=== PATIENT | female | born 2000 | race American Indian/Alaskan Native ===

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

== ENCOUNTER 2022-03-30 12:30 | Emergency (ER) | payer MEDICAID, OTHER, SELFPAY ==
[2022-03-30 13:00] VITALS: BP 100/57; PULSE 112; RESP 22; TEMP 38.7; O2SAT 99; BMI 19.9
[2022-03-30 13:36] LABS: COVID19 -Nasal RAPID Negative (Negative)
--- NOTE | 2022-03-30 15:36 | ED.URI ---
HPI - URI/Sore Throat <Jeannie Shaikh PA-C - Last Filed: 03/30/22 19:26> General Chief Complaint: Upper Respiratory Symptoms Stated Complaint: injured back, fever 102.9F, chills, sweats Time Seen by Provider: 03/30/22 15:11 Source: patient Mode of arrival: Family Vehicle History of Present Illness HPI Narrative: The patient is very pleasant 21 years old female, who has been experiencing fever for past 4 days. She recalled it started with some fatigue, sore throat, low back pain. She does not report any injury. She denies nasal congestion. She has been taking ibuprofen with some relief. Till last dose of ibuprofen was last p.m.. Her persistent fever prompted her to visit the ED. she admits additionally, has been not eating and drinking enough. Reports some mild abdominal pain, radiating towards her back. She also has some nausea. She denies diarrhea, cough congestion, shortness of breath, she describes she feels quite weak and tired. Overall she describes herself as being healthy, freely gets sick was sinus, pulmonary or skin infections. She noted though that her brother 13 years old student has been sick with similar symptoms. Related Data Previous Rx's Medication Instructions Recorded ondansetron 4 mg disintegrating 4 mg PO Q6H PRN nausea and 07/15/19 tablet vomiting #14 tabs ciprofloxacin HCl 500 mg tablet 500 mg PO BID pyelonephri #28 tabs 03/30/22 (Cipro) Allergies Allergy/AdvReac Type Severity Reaction Status Date / Time Sulfa (Sulfonamide Allergy Severe Hives Verified 03/30/22 13:04 Antibiotics) Review of Systems <Jeannie Shaikh PA-C - Last Filed: 03/30/22 19:26> Review of Systems Narrative: GENERAL: admits to chills, fatigue, malaise, and fever, no sweats X 4 -5 days . HEENT: Denies sinus pain, ear pain, sore throat, difficulty swallowing, dizziness. RESPIRATORY: Denies dyspnea, cough, wheezing, hemoptysis, sputum. CARDIOVASCULAR: Denies chest pain, palpitations, orthopnea, edema, GASTROINTESTINAL: Denies nausea, vomiting, abdominal pain, diarrhea, constipation, melena. : Denies dysuria, frequency, incontinence, hematuria, urinary retention. MUSCULOSKELETAL: denies weakness, joint pain, or bony pain denies urinary frequency but noted her urine is dark, and somewhat malodorous SKIN: Denies rash, skin lesions, or other NEUROLOGIC: Denies weakness, headache, numbness, change in speech, confusion, seizures, incoordination. PSYCHIATRIC: No concerning psychosocial issues. Patient History <Jeannie Shaikh PA-C - Last Filed: 03/30/22 19:26> Medical History (Updated 03/30/22 @ 18:59 by Jeannie Shaikh PA-C) history Healthy child Surgical History No pertinent past surgical history Status post D&C Social History Smoking Status: Current every day smoker Smoking Status: Current every day smoker alcohol intake frequency: 0-2 drinks per day Substance Use Type: marijuana Exam <Jeannie Shaikh PA-C - Last Filed: 03/30/22 19:26> Narrative Exam Narrative: GENERAL: This is a well-nourished, well-developed patient, in no acute distress. HEAD: Atraumatic. Normocephalic. No temporal or scalp tenderness. EYES: Pupils equal round and reactive. Extraocular motions intact. No scleral icterus. No injection or drainage. ENT: Nose without bleeding, purulent drainage or septal hematoma. Throat without erythema, tonsillar hypertrophy or exudate. Uvula midline. Airway patent. NECK: Trachea midline. No JVD or lymphadenopathy. Supple, nontender, no meningeal signs. CARDIOVASCULAR: Regular rate and rhythm without murmurs, gallops, or rubs. RESPIRATORY: Clear to auscultation. Breath sounds equal bilaterally. No wheezes, rales, or rhonchi. GASTROINTESTINAL: Abdomen soft, non-tender, nondistended. No hepato-splenomegaly, or palpable masses. No guarding. EXTREMITIES: No clubbing, cyanosis, or edema. No joint tenderness, effusion, or edema noted. BACK: LS spine is slightly tender without deformity or crepitance. No flank tenderness. NEURO: AOx3. SKIN: No rash or erythema of visible areas Initial Vital Signs Initial Vital Signs: Vital Signs Temperature 101.6 F H 03/30/22 13:00 Pulse Rate 112 H 03/30/22 13:00 Respiratory Rate 22 03/30/22 13:00 Blood Pressure 100/57 L 03/30/22 13:00 Pulse Oximetry 99 03/30/22 13:00 Oxygen Delivery Method 03/30/22 13:00 <Renetta Calle DO - Last Filed: 04/01/22 08:00> Initial Vital Signs Initial Vital Signs: Vital Signs Temperature 101.6 F H 03/30/22 13:00 Pulse Rate 112 H 03/30/22 13:00 Respiratory Rate 22 03/30/22 13:00 Blood Pressure 100/57 L 03/30/22 13:00 Pulse Oximetry 99 03/30/22 13:00 Oxygen Delivery Method 03/30/22 13:00 Course <Jeannie Shaikh PA-C - Last Filed: 03/30/22 19:26> Course Course Narrative: the patient was observed in the emergency department for fever. Her physical exam overall was unremarkable apart from lumbar pain. Vital signs were positive for fever. Hemodynamicly patient was stable She underwent laboratory testing, CBC CMP, urinalysis, respiratory blood and urine cultures. CBC was positive for leukocytosis, neutrophilia. Urinalysis showed leukocytosis, nitrates consistant with UTI but presence of fever has been concerning for pyelonephritis. Orders Ordered: Discontinued Medications Ciprofloxacin (Ciprofloxacin 250 Mg Tablet) 500 mg PO NOW ONE Stop: 03/30/22 18:38 Last Admin: 03/30/22 19:01 Dose: 500 mg Documented By: MARILYN Famotidine (Famotidine 20 Mg/2 Ml Vial) 20 mg IV NOW [facility] Last Admin: 03/30/22 16:10 Dose: 20 mg Documented By: MARILYN Sodium Chloride (Normal Saline 0.9%) 1,000 mls @ 125 mls/hr IV CONT [facility] Last Infusion: 03/30/22 19:13 Dose: 125 mls/hr Documented By: Admin: 03/30/22 16:13 Dose: 125 mls/hr Documented By: MARILYN Ibuprofen (Ibuprofen 400 Mg Tablet) 400 mg PO NOW ONE Stop: 03/30/22 15:35 Last Admin: 03/30/22 16:11 Dose: 400 mg Documented By: MARILYN Ondansetron HCl (Ondansetron 4 Mg/2 Ml Inj) 4 mg IV NOW ONE Stop: 03/30/22 15:34 Last Admin: 03/30/22 16:09 Dose: 4 mg Documented By: MARILYN Reevaluation(s) Reevaluation #1: afte rNSAIDS fever went down to 99.7 F Vital Signs Vital signs: Vital Signs - 8 hr 03/30/22 13:00 03/30/22 16:51 03/30/22 19:04 Temperature 101.6 F H 99.7 F H Pulse Rate 112 H 96 H Respiratory Rate 22 18 24 Blood Pressure 100/57 L 106/59 L Pulse Oximetry 99 98 Oxygen Delivery Method Room Air Room Air 03/30/22 19:12 Temperature Pulse Rate 92 H Respiratory Rate 18 Blood Pressure 105/57 L Pulse Oximetry 99 Oxygen Delivery Method Room Air <Renetta Calle DO - Last Filed: 04/01/22 08:00> Orders Ordered: Discontinued Medications Ciprofloxacin (Ciprofloxacin 250 Mg Tablet) 500 mg PO NOW ONE Stop: 03/30/22 18:38 Last Admin: 03/30/22 19:01 Dose: 500 mg Documented By: MARILYN Famotidine (Famotidine 20 Mg/2 Ml Vial) 20 mg IV NOW [facility] Last Admin: 03/30/22 16:10 Dose: 20 mg Documented By: MARILYN Sodium Chloride (Normal Saline 0.9%) 1,000 mls @ 125 mls/hr IV CONT [facility] Last Infusion: 03/30/22 19:13 Dose: 125 mls/hr Documented By: Admin: 03/30/22 16:13 Dose: 125 mls/hr Documented By: MARILYN Ibuprofen (Ibuprofen 400 Mg Tablet) 400 mg PO NOW ONE Stop: 03/30/22 15:35 Last Admin: 03/30/22 16:11 Dose: 400 mg Documented By: MARILYN Ondansetron HCl (Ondansetron 4 Mg/2 Ml Inj) 4 mg IV NOW ONE Stop: 03/30/22 15:34 Last Admin: 03/30/22 16:09 Dose: 4 mg Documented By: MARILYN Vital Signs Vital signs: Vital Signs - 8 hr 03/30/22 13:00 03/30/22 16:51 03/30/22 19:04 Temperature 101.6 F H 99.7 F H Pulse Rate 112 H 96 H Respiratory Rate 22 18 24 Blood Pressure 100/57 L 106/59 L Pulse Oximetry 99 98 Oxygen Delivery Method Room Air Room Air 03/30/22 19:12 Temperature Pulse Rate 92 H Respiratory Rate 18 Blood Pressure 105/57 L Pulse Oximetry 99 Oxygen Delivery Method Room Air MDM - URI/Sore Throat <Jeannie Shaikh PA-C - Last Filed: 03/30/22 19:26> Differential Diagnosis Differential diagnosis: Likely other (pyelonephritis, UTI ) Lab Data Result diagrams: 03/30/22 13:30 03/30/22 13:30 Labs: Lab Results 03/30/22 03/30/22 03/30/22 Range/Units 10:38 12:51 13:30 WBC 16.8 H (4.5-11.0) X10^3/uL RBC 4.67 (4.0-5.2) X10^6/uL Hgb 13.9 (12.0-16.0) g/dL Hct 40.8 (36-46) % MCV 87.4 (80-100) fL MCH 29.7 (26-34) PG MCHC 34.0 (30-36) % RDW 14.2 (11.6-14.8) % Plt Count 252 (150-400) X10^3/uL Neut % (Auto) 86.9 H (50-75) % Lymph % (Auto) 4.0 L (25-40) % Stewart % (Auto) 8.9 (3-14) % Eos % (Auto) 0.1 L (2-4) % Baso % (Auto) 0.1 (0-2) % Neut # (Auto) 92583 H (3824-2288) /uL Lymph # (Auto) 700 L (8692-7644) /uL Stewart # (Auto) 1500 H (0-900) /uL Eos # (Auto) 0 (0-450) /uL Baso # (Auto) 0 (0-100) /uL Sodium (137-145) mmol/L Potassium (3.4-5.1) mmol/L Chloride (98-107) mmol/L Carbon Dioxide (22-32) mmol/L BUN (7-17) mg/dL Creatinine (0.52-1.04) mg/dL Estimated GFR (>60) mL/min BUN/Creatinine Ratio (6-22) Glucose (70-100) mg/dL Lactate Calcium (8.4-10.2) mg/dL Total Bilirubin (0.2-1.3) mg/dL AST (14-36) IU/L ALT (<35) IU/L Alkaline Phosphatase (38-126) U/L Total Protein (6.3-8.2) g/dL Albumin (3.5-5.0) g/dL Globulin (1.7-4.1) g/dL Albumin/Globulin Ratio (1.0-2.8) Urine RBC (0-5/HPF) Urine WBC (0-5/HPF) Ur Squamous Epith Cells (0-5/HPF) Urine Bacteria (None) Ur Culture Indicated? Chlamy pneumoniae PCR Not detected (Not Detect) Adenovirus (PCR) Not detected (Not Detect) B. pertussis DNA (PCR) Not detected (Not Detecte) B.parapertussis DNA PCR Not detected (Not Detecte) Coronavirus OC43 (PCR) Not detected (Not Detect) Coronavirus HKU1 (PCR) Not detected (Not Detect) Coronavirus 229E (PCR) Not detected (Not Detect) SARS-CoV-2 (PCR) Not detected Negative (Not Detecte) Coronavirus NL63 (PCR) Not detected (Not Detect) Human Metapneumovir PCR Not detected (Not Detect) Influenza Type A (PCR) Not detected (Not Detect) Influenza Type B (PCR) Not detected (Not Detect) M. pneumoniae (PCR) Not detected (Not Detect) Parainfluenza 1 (PCR) Not detected (Not Detect) Parainfluenza 2 (PCR) Not detected (Not Detect) Parainfluenza 3 (PCR) Not detected (Not Detect) Parainfluenza 4 (PCR) Not detected (Not Detect) RSV (PCR) Not detected (Not Detect) Entero/Rhino (PCR) Not detected (Not Detect) 03/30/22 03/30/22 03/30/22 Range/Units 13:30 13:30 16:30 WBC (4.5-11.0) X10^3/uL RBC (4.0-5.2) X10^6/uL Hgb (12.0-16.0) g/dL Hct (36-46) % MCV (80-100) fL MCH (26-34) PG MCHC (30-36) % RDW (11.6-14.8) % Plt Count (150-400) X10^3/uL Neut % (Auto) (50-75) % Lymph % (Auto) (25-40) % Stewart % (Auto) (3-14) % Eos % (Auto) (2-4) % Baso % (Auto) (0-2) % Neut # (Auto) (8719-3007) /uL Lymph # (Auto) (8286-4868) /uL Stewart # (Auto) (0-900) /uL Eos # (Auto) (0-450) /uL Baso # (Auto) (0-100) /uL Sodium 138 (137-145) mmol/L Potassium 4.0 (3.4-5.1) mmol/L Chloride 103 (98-107) mmol/L Carbon Dioxide 22 (22-32) mmol/L BUN 9 (7-17) mg/dL Creatinine 0.73 (0.52-1.04) mg/dL Estimated GFR > 60 (>60) mL/min BUN/Creatinine Ratio 12.3 (6-22) Glucose 112 H (70-100) mg/dL Lactate Cancelled Calcium 8.8 (8.4-10.2) mg/dL Total Bilirubin 0.8 (0.2-1.3) mg/dL AST 24 (14-36) IU/L ALT 12 (<35) IU/L Alkaline Phosphatase 87 (38-126) U/L Total Protein 8.2 (6.3-8.2) g/dL Albumin 4.2 (3.5-5.0) g/dL Globulin 4.0 (1.7-4.1) g/dL Albumin/Globulin Ratio 1.1 (1.0-2.8) Urine RBC 0-1/hpf D (0-5/HPF) Urine WBC 10-30/hpf H (0-5/HPF) Ur Squamous Epith Cells F (0-5/HPF) Urine Bacteria Many (>30) H (None) Ur Culture Indicated? Specimen cultured Chlamy pneumoniae PCR (Not Detect) Adenovirus (PCR) (Not Detect) B. pertussis DNA (PCR) (Not Detecte) B.parapertussis DNA PCR (Not Detecte) Coronavirus OC43 (PCR) (Not Detect) Coronavirus HKU1 (PCR) (Not Detect) Coronavirus 229E (PCR) (Not Detect) SARS-CoV-2 (PCR) (Not Detecte) Coronavirus NL63 (PCR) (Not Detect) Human Metapneumovir PCR (Not Detect) Influenza Type A (PCR) (Not Detect) Influenza Type B (PCR) (Not Detect) M. pneumoniae (PCR) (Not Detect) Parainfluenza 1 (PCR) (Not Detect) Parainfluenza 2 (PCR) (Not Detect) Parainfluenza 3 (PCR) (Not Detect) Parainfluenza 4 (PCR) (Not Detect) RSV (PCR) (Not Detect) Entero/Rhino (PCR) (Not Detect) Point of Care Testing Test Results Negative Urine Dip Bedside Urine Glucose Negative Bedside Urine Bilirubin - Negative Bedside Urine Ketone + 15 Urine Specific [place] 1.010 Bedside Urine Occult Blood +/- Bedside Urine pH 7.0 Bedside Urine Protein + 30 Bedside Urine Urobilinogen 1+ 2mg Bedside Urine Nitrite + Positive Bedside Urine Leukocytes + 70 Esterase Imaging Data Chest x-ray: Radiologist's Impression: IMPRESSION:? Blunting of the left costophrenic angle which may represent pleural thickening or small pleural effusion. Otherwise, no acute airspace disease.? ? ECG Data Interpretation: NSR MDM Narrative Medical decision making narrative: pt is 21 years old female without significant medical history who was observed in the emergency department for fever, low back pain, nausea dehydration. Initially inpatient presented with some sore throat, which upside. Fever persisted, and subsequent workup including CBC, urinalysis, and examination consistent with urinary tract infection, and perhaps pyelonephritis. Patient's fever responded to NSAIDs. She remained hemodynamically stable she received IV fluid , antiemetics, NSAIDS, first dose atibiotics and much improved. She felt to be stable to be discharge home with istructions to continue antibiotisc, follow with PCP, <Renetta Calle, - Last Filed: 04/01/22 08:00> Lab Data Labs: Lab Results 03/30/22 03/30/22 03/30/22 Range/Units 10:38 12:51 13:30 WBC 16.8 H (4.5-11.0) X10^3/uL RBC 4.67 (4.0-5.2) X10^6/uL Hgb 13.9 (12.0-16.0) g/dL Hct 40.8 (36-46) % MCV 87.4 (80-100) fL MCH 29.7 (26-34) PG MCHC 34.0 (30-36) % RDW 14.2 (11.6-14.8) % Plt Count 252 (150-400) X10^3/uL Neut % (Auto) 86.9 H (50-75) % Lymph % (Auto) 4.0 L (25-40) % Stewart % (Auto) 8.9 (3-14) % Eos % (Auto) 0.1 L (2-4) % Baso % (Auto) 0.1 (0-2) % Neut # (Auto) 86199 H (2292-9567) /uL Lymph # (Auto) 700 L (8946-0547) /uL Stewart # (Auto) 1500 H (0-900) /uL Eos # (Auto) 0 (0-450) /uL Baso # (Auto) 0 (0-100) /uL Sodium (137-145) mmol/L Potassium (3.4-5.1) mmol/L Chloride (98-107) mmol/L Carbon Dioxide (22-32) mmol/L BUN (7-17) mg/dL Creatinine (0.52-1.04) mg/dL Estimated GFR (>60) mL/min BUN/Creatinine Ratio (6-22) Glucose (70-100) mg/dL Lactate Calcium (8.4-10.2) mg/dL Total Bilirubin (0.2-1.3) mg/dL AST (14-36) IU/L ALT (<35) IU/L Alkaline Phosphatase (38-126) U/L Total Protein (6.3-8.2) g/dL Albumin (3.5-5.0) g/dL Globulin (1.7-4.1) g/dL Albumin/Globulin Ratio (1.0-2.8) Urine RBC (0-5/HPF) Urine WBC (0-5/HPF) Ur Squamous Epith Cells (0-5/HPF) Urine Bacteria (None) Ur Culture Indicated? Chlamy pneumoniae PCR Not detected (Not Detect) Adenovirus (PCR) Not detected (Not Detect) B. pertussis DNA (PCR) Not detected (Not Detecte) B.parapertussis DNA PCR Not detected (Not Detecte) Coronavirus OC43 (PCR) Not detected (Not Detect) Coronavirus HKU1 (PCR) Not detected (Not Detect) Coronavirus 229E (PCR) Not detected (Not Detect) SARS-CoV-2 (PCR) Not detected Negative (Not Detecte) Coronavirus NL63 (PCR) Not detected (Not Detect) Human Metapneumovir PCR Not detected (Not Detect) Influenza Type A (PCR) Not detected (Not Detect) Influenza Type B (PCR) Not detected (Not Detect) M. pneumoniae (PCR) Not detected (Not Detect) Parainfluenza 1 (PCR) Not detected (Not Detect) Parainfluenza 2 (PCR) Not detected (Not Detect) Parainfluenza 3 (PCR) Not detected (Not Detect) Parainfluenza 4 (PCR) Not detected (Not Detect) RSV (PCR) Not detected (Not Detect) Entero/Rhino (PCR) Not detected (Not Detect) 03/30/22 03/30/22 03/30/22 Range/Units 13:30 13:30 16:30 WBC (4.5-11.0) X10^3/uL RBC (4.0-5.2) X10^6/uL Hgb (12.0-16.0) g/dL Hct (36-46) % MCV (80-100) fL MCH (26-34) PG MCHC (30-36) % RDW (11.6-14.8) % Plt Count (150-400) X10^3/uL Neut % (Auto) (50-75) % Lymph % (Auto) (25-40) % Stewart % (Auto) (3-14) % Eos % (Auto) (2-4) % Baso % (Auto) (0-2) % Neut # (Auto) (7922-1267) /uL Lymph # (Auto) (2376-8576) /uL Stewart # (Auto) (0-900) /uL Eos # (Auto) (0-450) /uL Baso # (Auto) (0-100) /uL Sodium 138 (137-145) mmol/L Potassium 4.0 (3.4-5.1) mmol/L Chloride 103 (98-107) mmol/L Carbon Dioxide 22 (22-32) mmol/L BUN 9 (7-17) mg/dL Creatinine 0.73 (0.52-1.04) mg/dL Estimated GFR > 60 (>60) mL/min BUN/Creatinine Ratio 12.3 (6-22) Glucose 112 H (70-100) mg/dL Lactate Cancelled Calcium 8.8 (8.4-10.2) mg/dL Total Bilirubin 0.8 (0.2-1.3) mg/dL AST 24 (14-36) IU/L ALT 12 (<35) IU/L Alkaline Phosphatase 87 (38-126) U/L Total Protein 8.2 (6.3-8.2) g/dL Albumin 4.2 (3.5-5.0) g/dL Globulin 4.0 (1.7-4.1) g/dL Albumin/Globulin Ratio 1.1 (1.0-2.8) Urine RBC 0-1/hpf D (0-5/HPF) Urine WBC 10-30/hpf H (0-5/HPF) Ur Squamous Epith Cells F (0-5/HPF) Urine Bacteria Many (>30) H (None) Ur Culture Indicated? Specimen cultured Chlamy pneumoniae PCR (Not Detect) Adenovirus (PCR) (Not Detect) B. pertussis DNA (PCR) (Not Detecte) B.parapertussis DNA PCR (Not Detecte) Coronavirus OC43 (PCR) (Not Detect) Coronavirus HKU1 (PCR) (Not Detect) Coronavirus 229E (PCR) (Not Detect) SARS-CoV-2 (PCR) (Not Detecte) Coronavirus NL63 (PCR) (Not Detect) Human Metapneumovir PCR (Not Detect) Influenza Type A (PCR) (Not Detect) Influenza Type B (PCR) (Not Detect) M. pneumoniae (PCR) (Not Detect) Parainfluenza 1 (PCR) (Not Detect) Parainfluenza 2 (PCR) (Not Detect) Parainfluenza 3 (PCR) (Not Detect) Parainfluenza 4 (PCR) (Not Detect) RSV (PCR) (Not Detect) Entero/Rhino (PCR) (Not Detect) Point of Care Testing Test Results Negative Urine Dip Bedside Urine Glucose Negative Bedside Urine Bilirubin - Negative Bedside Urine Ketone + 15 Urine Specific [place] 1.010 Bedside Urine Occult Blood +/- Bedside Urine pH 7.0 Bedside Urine Protein + 30 Bedside Urine Urobilinogen 1+ 2mg Bedside Urine Nitrite + Positive Bedside Urine Leukocytes + 70 Esterase Discharge Plan Departure Patient Disposition: Home Clinical Impression: Pyelonephritis Instructions: DI for Urinary Tract Infection (UTI) Activity Restrictions/Additional Instructions: *You have been diagnosed with fever, back pain respiratory symptoms . Further work up showed urinary infection and possible pyelonephritis *What to do: *Please continue to take your regular medications as directed. New medication prescriptions sent to your pharmacy: Ciprofloxacin 500 mg twice a day for 14 days *Please follow up with your primary care provider in 2-3 days, call for an appointment. Let them know you were seen in the Emergency Department and that we ask that you be seen in follow up. We will electronically transmit a record of today's note if your PCP is in our system *If you do not have a primary care provider please contact the [facility] Resource line at [phone]. They will ask some questions about your medical history and help get you set up with a doctor in the community. *Return to Emergency Department if you should have any new, worsening or concerning symptoms, such as fever greater than 101 F, shaking chills, worsening back pain, persistent vomiting or other bothersome symptoms Please take medications as directed. Prescriptions: New ciprofloxacin HCl [Cipro] 500 mg tablet 500 mg PO BID Qty: 28 0RF No Action ondansetron 4 mg tablet,disintegrating 4 mg PO Q6H PRN (Reason: nausea and vomiting) Qty: 14 0RF Referrals: Iris Avila MD [Primary Care Provider] - Visit Report Forms: Patient Portal/API <Renetta Calle DO - Last Filed: 04/01/22 08:00> Cosign ED Attending Jenature Attestation: I was immediately available in the department for consultation. Documentation has been reviewed. Case was discussed at length, discussed that patient appears to have pyelonephritis, discussed observation overnight in the hospital.
[2022-03-30 15:58] LABS: Alanine Aminotransferase 12 IU/L (<35); Albumin 4.2 g/dL (3.5-5.0); Albumin Globulin Ratio 1.1 (1.0-2.8); Alkaline Phosphatase 87 U/L (38-126); Aspartate Aminotransferase 24 IU/L (14-36); BUN Creatinine Ratio 12.3 (6-22); Bilirubin Total 0.8 mg/dL (0.2-1.3); Blood Urea Nitrogen 9 mg/dL (7-17); Calcium 8.8 mg/dL (8.4-10.2); Carbon Dioxide 22 mmol/L (22-32); Chloride 103 mmol/L (98-107); Estimated Glomerular Filt Rate > 60 mL/min (>60); Glucose 112 mg/dL (70-100); HEMOLYSIS < 15 (0-50); Sodium 138 mmol/L (137-145); Total Protein 8.2 g/dL (6.3-8.2)
[2022-03-30 16:01] LABS: Add Manual Diff / Slide Review NO; Basophils Absolute Auto 0 /uL (0-100); Basophils Percent Auto 0.1 % (0-2); Eosinophils Absolute Auto 0 /uL (0-450); Eosinophils Percent Auto 0.1 % (2-4); Hematocrit 40.8 % (36-46); Hemoglobin 13.9 g/dL (12.0-16.0); Lymphocytes Absolute Auto 700 /uL (1100-4500); Mean Corpuscular Hemoglobin 29.7 PG (26-34); Mean Corpuscular Volume 87.4 fL (80-100); Monocytes Absolute Auto 1500 /uL (0-900); Monocytes Percent Auto 8.9 % (3-14); Neutrophils Absolute Auto 14600 /uL (1500-7000); Neutrophils Percent Auto 86.9 % (50-75); Platelet Count 252 X10^3/uL (150-400); Red Blood Cell Count 4.67 X10^6/uL (4.0-5.2); Red Cell Distribution Width 14.2 % (11.6-14.8); White Blood Cell Count 16.8 X10^3/uL (4.5-11.0)
[2022-03-30] MEDS: ONDANSETRON 4 MG/2 ML INJ IV (16:09)
[2022-03-30] MEDS: FAMOTIDINE 20 MG/2 ML VIAL IV (16:10)
[2022-03-30] MEDS: IBUPROFEN 400 MG TABLET PO (16:11)
[2022-03-30] MEDS: SODIUM CHLORIDE 0.9% 1,000 ML 125 ML IV (16:13)
[2022-03-30 16:51] VITALS: BP 106/59; PULSE 96; RESP 18; TEMP 37.6; O2SAT 98
[2022-03-30 17:15] LABS: Bacteria Urine Many (>30); Culture Indicated Urine Specimen Cultured; RBC Urine 0-1/HPF (0-5/HPF); Squamous Epithelial Cell Urine F (0-5/HPF); WBC Urine 10-30/HPF (0-5/HPF)
--- NOTE | 2022-03-30 17:42 | DI.RAD.S_ITS ---
PROCEDURE: XR CHEST 1V INDICATIONS: suspect septicemia /pyelonepritis TECHNIQUE: One view of the chest was acquired. COMPARISON: [facility], CR, XR CHEST 2V, 06/16/2019, 15:08. FINDINGS: Surgical changes and devices: Surgical clips project over the lateral left lower chest wall. Lungs and pleura: Lungs are clear. Blunting of the left costophrenic angle. This may represent a small pleural effusion. No pneumothorax. Mediastinum: Mediastinal contours appear normal. Heart size is normal. Bones and chest wall: No suspicious bony lesions. Overlying soft tissues appear unremarkable. IMPRESSION: Blunting of the left costophrenic angle which may represent pleural thickening or small pleural effusion. Otherwise, no acute airspace disease. Dictated by: Reza Felipe M.D. on 03/30/2022 at 18:18 Approved by: Reza Felipe M.D. on 03/30/2022 at 18:20
[2022-03-30 18:53] LABS: Adenovirus Not Detected (Not Detect); B. parapertussis Not Detected (Not Detecte); Bordetella pertussis Not Detected (Not Detecte); Chlamydophila pneumoniae Not Detected (Not Detect); Coronavirus 229E Not Detected (Not Detect); Coronavirus HKU1 Not Detected (Not Detect); Coronavirus NL 63 Not Detected (Not Detect); Coronavirus OC43 Not Detected (Not Detect); Human Metapneumovirus Not Detected (Not Detect); Human Rhinovirus/Enterovirus Not Detected (Not Detect); Influenza A Not Detected (Not Detect); Influenza B Not Detected (Not Detect); Mycoplasma pneumoniae Not Detected (Not Detect); Parainfluenza Virus 1 Not Detected (Not Detect); Parainfluenza Virus 2 Not Detected (Not Detect); Parainfluenza Virus 3 Not Detected (Not Detect); Parainfluenza Virus 4 Not Detected (Not Detect); Respiratory Syncytial Virus Not Detected (Not Detect); SARS- CoV-2 Not Detected (Not Detecte)
[2022-03-30] MEDS: CIPROFLOXACIN 250 MG TABLET 500 MG PO (19:01)
[2022-03-30 19:04] VITALS: RESP 24
[2022-03-30 19:12] VITALS: BP 105/57; PULSE 92; RESP 18; O2SAT 99
== END 2022-03-30 19:18 | disposition home or self-care (01) ==
PROVIDERS: Emergency Medicine; Emergency Provider Physician Assistant Medical; PCP Family Medicine
DX: N12 Tubulo-interstitial nephritis, not specified as acute or chronic (principal); Z20.822 Contact with and (suspected) exposure to COVID-19
CPT/HCPCS: 71045; 80053; 81003; 81015; 81025; 85025; 87040; 87077; 87086; 87186; 87633; 87635; 93005; 96361; 96374; 96375; 99284; C9803; J2405

== ENCOUNTER → 2022-06-18 08:48 | Outpatient (CLI) | payer MEDICAID, OTHER, SELFPAY ==
--- NOTE | 2022-06-18 08:49 | DI.US.S_ITS ---
PROCEDURE: US OB <= 14 WEEKS FETUS INDICATIONS: DATING OUTSIDE/PRIOR DATING DATA: Last menstrual period (LMP): Unknown. LMP-based estimated date of delivery (ALISSA): Unknown. First dating scan (date and location): 06/18/2022. Estimated date of delivery (ALISSA) from first dating scan: 12/26/2022. The calculations are made using the ultrasound ALISSA of 12/26/2022. TECHNIQUE: Real-time scanning was performed of the fetus and maternal pelvic organs, with image documentation. Endovaginal scanning was also performed to better visualize the fetus and maternal ovaries. COMPARISON: None. FINDINGS: Embryo: [place]-rump length measuring 6.4 cm, gestational age 12 weeks 5 days. Heart rate: 147 bpm A yolk sac is seen. Maternal organs: Ovaries are within normal limits. Probable left corpus luteum. IMPRESSION: 1. Lopez living intrauterine at 12 weeks 5 days based on today's crown rump length. 2. No perigestational hemorrhage. We strive to produce accurate, complete, and clear reports of imaging services. To assist us in improving patient care, this report was composed using standard report templates and voice recognition software. Therefore, it may contain abnormal punctuation, insertions and/or omissions. Occasional wrong-word or sound-alike substitutions may occur. Though we review the report and make efforts to correct it, we do recommend that the report be read carefully in proper context to recognize any text inaccuracies. Dictated by: Kennedy Jerry M.D. on 06/18/2022 at 9:23 Approved by: Kennedy Jerry M.D. on 06/18/2022 at 9:25
== END ==
PROVIDERS: PCP Family Medicine; Referring Provider Obstetrics & Gynecology; Visit Provider Obstetrics & Gynecology
DX: Z34.81 Encounter for supervision of other normal pregnancy, first trimester (principal); Z3A.12 12 weeks gestation of pregnancy
CPT/HCPCS: 76801; 76817

== ENCOUNTER → 2022-07-23 11:22 | Outpatient (CLI) | payer MEDICAID, OTHER, SELFPAY ==
[2022-07-23 12:19] LABS: Add Manual Diff / Slide Review NO; Basophils Absolute Auto 0 /uL (0-100); Basophils Percent Auto 0.2 % (0-2); Eosinophils Absolute Auto 300 /uL (0-450); Eosinophils Percent Auto 3.1 % (2-4); Hematocrit 34.4 % (36-46); Lymphocytes Absolute Auto 2200 /uL (1100-4500); Lymphocytes Percent Auto 25.2 % (25-40); Mean Corpuscular HGB Conc 34.8 % (30-36); Mean Corpuscular Hemoglobin 30.7 PG (26-34); Mean Corpuscular Volume 88.2 fL (80-100); Monocytes Absolute Auto 400 /uL (0-900); Monocytes Percent Auto 4.9 % (3-14); Neutrophils Absolute Auto 5800 /uL (1500-7000); Neutrophils Percent Auto 66.6 % (50-75); Platelet Count 281 X10^3/uL (150-400); Red Blood Cell Count 3.89 X10^6/uL (4.0-5.2); Red Cell Distribution Width 13.9 % (11.6-14.8); White Blood Cell Count 8.8 X10^3/uL (4.5-11.0)
[2022-07-23 12:48] LABS: Appearance Urine UA CLEAR; Bilirubin Urine UA NEGATIVE (NEGATIVE); Color Urine UA YELLOW; Glucose Urine UA NEGATIVE (Negative); Ketones Urine UA NEGATIVE (NEGATIVE); Leukocyte Esterase Urine UA NEGATIVE (NEGATIVE); Nitrite Urine UA NEGATIVE (Negative); Occult Blood Urine UA NEGATIVE (Negative); Protein Urine UA NEGATIVE (Negative); Urobilinogen Urine UA 0.2 E.U./dL (0.2)
[2022-07-23 12:49] LABS: pH Urine UA 6.5 (4.5-8.0)
[2022-07-24 05:49] LABS: RPR Screen Non Reactive (Non Reactive)
[2022-07-24 14:04] LABS: Varicella IgG Antibody 820 index (Immune >165)
[2022-07-24 18:37] LABS: HIV 1 & 2 Ab/Ag 4th Gen Combo NEGATIVE (NEGATIVE); Hep C Virus Ab w/Reflex Quant NEGATIVE s/c (NEGATIVE); Hepatitis B Surface Antigen NEGATIVE s/c (NEGATIVE); Rubella Antibody IgG 23.9 IU/mL (>15)
[2022-07-25 21:36] LABS: AFP, Serum 76.8 ng/mL (.); Estriol, Free 2.27 ng/mL (.); Inhibin A, Dimeric 212.48 pg/mL (.); Inhibin A, MoM 1.14 (.); Maternal Ethnicity Other (.); Maternal Weight 115 lbs (.); Number of Fetuses No (.); OSBR Risk 1 IN 3048 (.); Results Report (.); Test Results *Screen Negative* (.); hCG, MoM 0.91 (.); hCG, Serum 35374 mIU/mL (.)
== END ==
PROVIDERS: Obstetrics & Gynecology; PCP Family Medicine; Referring Provider Obstetrics & Gynecology; Visit Provider Obstetrics & Gynecology
DX: Z34.82 Encounter for supervision of other normal pregnancy, second trimester (principal); Z3A.17 17 weeks gestation of pregnancy
CPT/HCPCS: 36415; 80055; 81003; 82105; 82677; 84702; 86336; 86787; 86803; 86850; 86900; 86901; 87086; 87389

== ENCOUNTER → 2022-08-19 12:28 | Outpatient (CLI) | payer MEDICAID, OTHER, SELFPAY ==
--- NOTE | 2022-08-19 12:30 | DI.US.S_ITS ---
PROCEDURE: US OB >= 14 WEEKS FETUS INDICATIONS: 20 week Anatomy scan OUTSIDE/PRIOR DATING DATA: Last menstrual period (LMP): Unknown. LMP-based estimated date of delivery (ALISSA): Unknown. First dating scan (date and location): 06/18/2022. Estimated date of delivery (ALISSA) from first dating scan: 12/26/2022. The calculations are made using the ultrasound ALISSA of 12/26/2022. TECHNIQUE: Real-time scanning was performed of the fetus, with image documentation and biometric measurements. COMPARISON: [facility], , OB <= 14 WEEKS FETUS, 06/18/2022, 8:56. FINDINGS: General: A single living intrauterine gestation is present. Presentation: Vertex. Placenta: Placental position is anterior , without previa. Amniotic fluid index: 15.1 cm, normal range is 5-24 cm. Single deepest vertical pocket is 5.6 cm. heart rate: 135 beats per minute. Maternal cervical canal: 4.0 cm long. Normal lower limit is 2.5 cm. biometrics: Biparietal diameter: 5.1 cm 21 weeks 3 days Head circumference: 19.5 cm 21 weeks 5 days Abdominal circumference: 17.0 cm 22 weeks 0 days Femur length: 3.5 cm 21 weeks 0 days Composite gestational age from initial scan: 21 weeks 4 days Composite gestational age from present scan: 21 weeks 4 days Estimated weight and percentile: 431 g 40 second percentile Anatomic survey: Neuro: Ventricles are non-dilated at less than 10 mm. Cisterna magna is normal at 3-11 mm. Cerebellum is normal in size and morphology. Nuchal skin fold: Normal at less than 6 mm between 14-21 weeks gestational age. Face: Nose and lips, facial profile are normal. Spine: No evidence for spina bifida. Heart: 4-chambered heart is present, with normal ventricular outflow tracts. Diaphragm: Diaphragm is intact. Stomach: Left-sided stomach is present. Kidneys: No hydronephrosis. Normal is less than 5 mm in 2nd trimester, less than 7 mm in 3rd trimester. Cord: 3-vessel cord has orthotopic insertion. Bladder: Normal in size. Extremities: All 4 extremities identified. IMPRESSION: Single live intrauterine with ultrasound gestational age of 21 weeks 4 days. Anatomy is within normal limits. We strive to produce accurate, complete, and clear reports of imaging services. To assist us in improving patient care, this report was composed using standard report templates and voice recognition software. Therefore, it may contain abnormal punctuation, insertions and/or omissions. Occasional wrong-word or sound-alike substitutions may occur. Though we review the report and make efforts to correct it, we do recommend that the report be read carefully in proper context to recognize any text inaccuracies. Dictated by: Khushi Winston M.D. on 08/19/2022 at 16:43 Approved by: Khushi Winston M.D. on 08/19/2022 at 16:46
== END ==
PROVIDERS: PCP Family Medicine; Referring Provider Obstetrics & Gynecology; Visit Provider Obstetrics & Gynecology
DX: Z34.82 Encounter for supervision of other normal pregnancy, second trimester (principal); Z3A.21 21 weeks gestation of pregnancy
CPT/HCPCS: 76811

== ENCOUNTER → 2022-08-20 11:56 | Outpatient (CLI) | payer MEDICAID, OTHER, SELFPAY ==
[2022-08-20 20:09] LABS: Urine N gonorrhoeae NOT DETECTED
[2022-08-20 20:35] LABS: Urine Chlamydia NOT DETECTED
== END ==
PROVIDERS: PCP Family Medicine; Visit Provider Obstetrics & Gynecology
DX: Z34.82 Encounter for supervision of other normal pregnancy, second trimester (principal); Z11.3 Encounter for screening for infections with a predominantly sexual mode of transmission; Z3A.21 21 weeks gestation of pregnancy
CPT/HCPCS: 87086; 87491; 87591

== ENCOUNTER 2022-09-09 01:16 | Emergency (ER) | payer MEDICAID, OTHER, SELFPAY ==
--- NOTE | 2022-09-09 01:28 | ED.FEMALEGU ---
HPI - Female Genitourinary General Chief complaint: Vaginal Bleeding Stated complaint: and bleeding Time Seen by Provider: 09/09/22 01:23 History of Present Illness HPI Narrative: Patient brought here by family. Complains of vaginal spotting/vaginal bleeding when going to the bathroom tonight. Patient is , 24 weeks' gestation, due date December 26, 2022. Patient is followed by Dr. Levi BLANDON from this hospital. Last office visit August 20, 2022 for wellness check. Patient denies any fluid leak. Denies any contractions. Had some abdominal discomfort but mild. No back pain. No fever or chills. No urinary complaints. Related Data Home Medications Medication Instructions Recorded Confirmed prenat.vits,jessica,[id number] 1 tab PO DAILY 06/02/22 09/09/22 Allergies Allergy/AdvReac Type Severity Reaction Status Date / Time Sulfa (Sulfonamide Allergy Severe Hives Verified 08/20/22 11:28 Antibiotics) chicken derived Allergy Intermediate Difficulty Verified 08/20/22 11:28 Breathing turkey Allergy Intermediate Difficulty Verified 08/20/22 11:28 Breathing Review of Systems Review of Systems Narrative: GENERAL: negative chills, fatigue, malaise, fever, sweats. HEENT: negative sinus pain, ear pain, sore throat RESPIRATORY: negative dyspnea, cough CARDIOVASCULAR: negative chest pain, palpitations GASTROINTESTINAL: negative nausea, vomiting, abdominal pain : negative dysuria, frequency, hematuria, positive vaginal bleeding MUSCULOSKELETAL: negative muscle or bony pain SKIN: negative rash, skin lesions NEUROLOGIC: negative weakness, numbness ROS Unobtainable: All systems reviewed & are unremarkable except as noted in HPI and below Patient History Medical History Abdominal pain history Anxiety and depression History of pyelonephritis Menorrhagia Sprain of costal cartilage Surgical History No pertinent past surgical history Status post D&C Family History Grandmother Diabetes mellitus Kidney failure Family/Other Diabetes mellitus Grandfather Osteoarthritis Family/Other Rheumatoid arthritis Grandfather Diabetes mellitus Abdominal tumor alcohol intake frequency: 0-2 drinks per day Substance Use Type: marijuana Exam Narrative Exam Narrative: GENERAL: in no distress, not toxic not dyspneic HEAD: Normocephalic. EYES: Pupils equal round ENT: Mucous membranes moist. NECK: Trachea midline. CARDIOVASCULAR: Regular rate and rhythm without murmurs RESPIRATORY: Clear to auscultation. Breath sounds equal bilaterally. No wheezes, rales, or rhonchi. GASTROINTESTINAL: Abdomen soft, non-tender, is distended to gestational age. Bowel sounds present. heart tones 140 beats per minute BACK: No flank tenderness. NEURO: AOx4. SKIN: Warm and dry PSYCH: Not anxious, is cooperative Initial Vital Signs Initial Vital Signs: Vital Signs Temperature 97.9 F 09/09/22 01:38 Pulse Rate 79 09/09/22 01:38 Respiratory Rate 14 09/09/22 01:38 Blood Pressure 99/50 L 09/09/22 01:38 Pulse Oximetry 100 09/09/22 01:38 Oxygen Delivery Method 09/09/22 01:38 Course Vital Signs Vital signs: Vital Signs - 8 hr 09/09/22 01:38 Temperature 97.9 F Pulse Rate 79 Respiratory Rate 14 Blood Pressure 99/50 L Pulse Oximetry 100 Oxygen Delivery Method Room Air MDM - Female Genitourinary MDM Narrative Medical decision making narrative: Patient brought here by family. Complains of vaginal spotting/vaginal bleeding when going to the bathroom tonight. Patient is , 24 weeks' gestation, due date December 26, 2022. Patient is followed by Dr. Levi BLANDON from this hospital. Last office visit August 20, 2022 for wellness check. Patient denies any fluid leak. Denies any contractions. Had some abdominal discomfort but mild. No back pain. No fever or chills. No urinary complaints. After history and exam heart tones attained, paged OB on-call MDM CC: Vaginal bleeding Complicating co-morbidities: 24 weeks Data collected from: Patient Medical records reviewed: Office Visit OBGYN August 20, 2022 Differential considered: Includes but not limited to premature rupture membranes, premature labor. Threatened miscarriage, Exam documented above, pertinent findings include: Nontender abdomen Consultations: 1:40 a.m. Spoke with motor scooter mechanic on-call, Dr. Dueñas, agrees with son patient to L and D floor now Treatments: No medications required at this time Re-evaluations: Reviewed with patient and understands need to send to L and D floor for monitoring now Discussion: Appropriate for transfer to L and D floor for monitoring. I have spoken with OBGYN and instructs for patient to be moved to L and D floor for monitoring Diagnosis: Vaginal bleeding Discharge Plan Departure Patient Disposition: Home Clinical Impression: Vaginal bleeding during Instructions: DI for Vaginal Bleeding During Activity Restrictions/Additional Instructions: Please go directly to labor and delivery floor now. Prescriptions: No Action prenat.vits,jessica,[id number] Tablet 1 tab PO DAILY Referrals: Iris Avila MD [Primary Care Provider] -
[2022-09-09 01:38] VITALS: BP 99/50; PULSE 79; RESP 14; TEMP 36.6; O2SAT 100; BMI 20.2
--- NOTE | 2022-09-09 01:42 | PC.NURSE ---
pt is AB1
== END 2022-09-09 01:46 | disposition home or self-care (01) ==
PROVIDERS: Emergency Provider Emergency Medicine; PCP Family Medicine
DX: O46.92 Antepartum hemorrhage, unspecified, second trimester (principal); Z3A.24 24 weeks gestation of pregnancy
CPT/HCPCS: 99282

== ENCOUNTER 2022-09-09 01:46 | Observation (INO) | payer MEDICAID, OTHER, SELFPAY ==
--- NOTE | 2022-09-09 02:57 | DI.US.S_ITS ---
PROCEDURE: US OB LIMITED INDICATIONS: vaginal bleeding OUTSIDE/PRIOR DATING DATA: Last menstrual period (LMP): Not available. LMP-based estimated date of delivery (ALISSA): Not available. First dating scan (date and location): 06/18/22. Estimated date of delivery (ALISSA) from first dating scan: 12/26/2022. The calculations are made using the working ALISSA of 12/26/2022. TECHNIQUE: Real-time scanning was performed of the fetus, with image documentation and biometric measurements. Biophysical profile was also obtained. COMPARISON: [facility], OB >= 14 WEEKS FETUS, 08/19/2022, 12:40. [facility], OB <= 14 WEEKS FETUS, 06/18/2022, 8:56. FINDINGS: General: A single living intrauterine gestation is present. Presentation: Transverse head to the left. Placenta: Placental position is anterior , without previa. Amniotic fluid index: 23.4 cm, normal range is 5-24 cm. Single deepest vertical pocket is 6 point cm. heart rate: 133 beats per minute. Maternal cervical canal: 3.4 cm long. Normal lower limit is 2.5 cm. biometrics: Not performed. Clinically estimated gestational age: 24 weeks 4 days IMPRESSION: 1. A single living intrauterine gestation redemonstrated. 2. Cervix is closed and measures 3.4 cm. We strive to produce accurate, complete, and clear reports of imaging services. To assist us in improving patient care, this report was composed using standard report templates and voice recognition software. Therefore, it may contain abnormal punctuation, insertions and/or omissions. Occasional wrong-word or sound-alike substitutions may occur. Though we review the report and make efforts to correct it, we do recommend that the report be read carefully in proper context to recognize any text inaccuracies. No significant discrepancy with the specialized developer radiology preliminary report. Dictated by: Kay Martinez M.D. on 09/09/2022 at 8:17 Approved by: Kay Martinez M.D. on 09/09/2022 at 8:21
== END 2022-09-09 04:30 | disposition home or self-care (01) ==
LOC: LABOR 01:47
PROVIDERS: Admitting Provider Obstetrics & Gynecology; PCP Family Medicine; Referring Provider Obstetrics & Gynecology; Visit Provider Obstetrics & Gynecology
DX: O26.852 Spotting complicating pregnancy, second trimester (principal); O47.02 False labor before 37 completed weeks of gestation, second trimester; Z3A.24 24 weeks gestation of pregnancy; O46.92 Antepartum hemorrhage, unspecified, second trimester
CPT/HCPCS: 59050; 76815; 96360; 99282; G0378; G0379

== ENCOUNTER → 2022-09-17 11:43 | Outpatient (CLI) | payer MEDICAID, OTHER, SELFPAY ==
[2022-09-17 20:09] LABS: Urine N gonorrhoeae NOT DETECTED
[2022-09-17 20:31] LABS: Urine Chlamydia NOT DETECTED
== END ==
PROVIDERS: PCP Family Medicine; Visit Provider Obstetrics & Gynecology
DX: Z34.82 Encounter for supervision of other normal pregnancy, second trimester (principal); Z3A.25 25 weeks gestation of pregnancy
CPT/HCPCS: 87491; 87591

== ENCOUNTER 2022-09-24 12:11 | Outpatient (CLI) | payer MEDICAID, OTHER, SELFPAY ==
[2022-09-24 12:57] LABS: Appearance Urine UA CLEAR; Bilirubin Urine UA NEGATIVE (NEGATIVE); Color Urine UA YELLOW; Glucose Urine UA NEGATIVE (Negative); Ketones Urine UA NEGATIVE (NEGATIVE); Leukocyte Esterase Urine UA TRACE (NEGATIVE); Nitrite Urine UA NEGATIVE (Negative); Occult Blood Urine UA TRACE-INTACT (Negative); Protein Urine UA NEGATIVE (Negative); Urobilinogen Urine UA 0.2 E.U./dL (0.2)
[2022-09-24 13:05] LABS: Bacteria Urine None Seen; Culture Indicated Urine Specimen Cultured; RBC Urine 0-1/HPF (0-5/HPF); Squamous Epithelial Cell Urine 0-1 /HPF (0-5/HPF); WBC Urine None Seen (0-5/HPF)
--- NOTE | 2022-09-24 13:16 | P.TNLD_ITS ---
Visit Information Visit Information Date of evaluation: 09/24/22 Primary OB Provider: Dirk Sims On-call OB Provider: Brad Sawant Reason for Evaluation: Yes pre-term labor and Yes other Comments/Additional reasons for admission: Spotting and question of contractions 22-year-old 2 para 0 has been complaining for many weeks of episodes of cramping and spotting starting in August. Patient was recently in [place] and when she went to the hospital [place] with similar complaints they started her on nifedipine 30 mg XL b.i.d. for which the patient has been on now for only 2 days. Patient presents again saying she spotted last night and again earlier this morning both times it was very light pink and she felt some tightening in her lower abdomen [facility] Medical History (Updated 09/24/22 @ 13:25 by Brad Sawant MD) Abdominal pain history Anemia Anxiety and depression (~2017) History of pyelonephritis Irregular menstrual cycle (~2017) Menorrhagia Scoliosis Sprain of costal cartilage Surgical History No pertinent past surgical history Status post D&C Family History (Updated 09/16/22 @ 21:27 by Cecy Aguillon) Grandmother Diabetes mellitus Kidney failure Family/Other Diabetes mellitus Grandfather Osteoarthritis Arthritis Family/Other Rheumatoid arthritis Grandfather Diabetes mellitus Abdominal tumor Father Arthritis Social History marital status: unmarried,living together number of children: 0 household members: significant other and family (grandparents) lives independently: Yes housing: house pets and animals: Yes education level: high school (did not graduate) current occupational exposures/hazards: No special queenie needs: No travel history: over 6 months ago seatbelt use: always water heater temp set < 120 deg: Yes working smoke detector in home: Yes fire extinguisher in home: Yes carbon monox detector in home: No firearms in home: No do you feel safe at home: Yes Smoking Status: Former smoker second hand exposure: Yes (grandfather and s/o smoke) alcohol intake: never substance use type: does not use during the past year weight has: remained stable well-balanced diet: rarely or never daily servings fruits/ve-1 caffeine: No Type(s) of exercise: none Objective Labs Labs: Laboratory Results - last 24 hr 09/24/22 12:35 Urine Color Yellow Urine Appearance Clear Urine pH 7.0 Ur Specific [place] 1.010 Urine Protein Negative Urine Glucose (UA) Negative Urine Ketones Negative Urine Occult Blood Trace-intact Urine Nitrate Negative Urine Bilirubin Negative Urine Urobilinogen 0.2 Ur Leukocyte Esterase Trace H Urine RBC 0-1/hpf Urine WBC None seen Ur Squamous Epith Cells 0-1 /hpf Urine Bacteria None seen Ur Culture Indicated? Specimen cultured Evaluation Evaluation Baseline heart rate: 146 Variability: Moderate (11-25) monitor accelerations: Present Monitor Decelerations: Absent Contraction Frequency (minutes): 0 Comments: Patient was observed for over an hour there were no contractions no further spotting. Diagnosis, Plan/Disposition Final Diagnosis (1) Anxiety associated with birthing process: Status: Acute (2) with 26 completed weeks gestation: Status: Acute (3) Dillon Rodriguez contractions: Status: Acute Plan/Disposition Plan: Continue clinic appointments and her nifedipine OB Disposition: home
== END 2022-09-24 13:45 | disposition home or self-care (01) ==
LOC: LABOR 13:28 → OB 09-29 08:19
PROVIDERS: Obstetrics & Gynecology; PCP Family Medicine; Referring Provider Obstetrics & Gynecology; Visit Provider Obstetrics & Gynecology
DX: O26.852 Spotting complicating pregnancy, second trimester (principal); O47.02 False labor before 37 completed weeks of gestation, second trimester; Z3A.26 26 weeks gestation of pregnancy
CPT/HCPCS: 59025; 81001; 87086; G0378; G0379

== ENCOUNTER → 2022-10-07 10:39 | Outpatient (CLI) | payer MEDICAID, OTHER, SELFPAY ==
[2022-10-07 12:52] LABS: Hemoglobin 11.3 g/dL (12.0-16.0)
[2022-10-07 13:30] LABS: GTT (PREG) 1 Hour PP 50gm Dose 77 mg/dL (76-139)
== END ==
PROVIDERS: PCP Family Medicine; Referring Provider Obstetrics & Gynecology; Visit Provider Obstetrics & Gynecology
DX: Z34.82 Encounter for supervision of other normal pregnancy, second trimester (principal); Z3A.26 26 weeks gestation of pregnancy
CPT/HCPCS: 36415; 82950; 85014; 85018

== ENCOUNTER 2022-11-11 15:49 | Observation (INO) | payer MEDICAID, OTHER, SELFPAY ==
--- NOTE | 2022-11-11 16:39 | DI.US.S_ITS ---
PROCEDURE: US OB LIMITED INDICATIONS: CONTRACTION. CERVICAL LENGTH AND GROWTH OUTSIDE/PRIOR DATING DATA: Last menstrual period (LMP): Not available. LMP-based estimated date of delivery (ALISSA): Not available. First dating scan (date and location): 06/18/2022. Estimated date of delivery (ALISSA) from first dating scan: 12/26/2022. The calculations are made using the or acute ALISSA of 12/26/2022. TECHNIQUE: Real-time scanning was performed of the fetus, with image documentation and biometric measurements. Biophysical profile was also obtained. COMPARISON: [facility], OB >= 14 WEEKS FETUS, 08/19/2022, 12:40. [facility] OB <= 14 WEEKS FETUS, 06/18/2022, 8:56. [facility] OB LIMITED, 09/09/2022, 3:05. FINDINGS: General: A single living intrauterine gestation is present. Presentation: Breech. Placenta: Placental position is anterior , without previa. Amniotic fluid index: 16.5 cm, normal range is 5-24 cm. Single deepest vertical pocket is 4.7 cm. heart rate: 111 beats per minute. Maternal cervical canal: 3.7 cm long. Normal lower limit is 2.5 cm. biometrics: Biparietal diameter: 34 weeks 2 days Head circumference: 36 weeks 1 Abdominal circumference: 34 weeks 4 days Femur length: 32 weeks 2 days Clinically estimated gestational age: 33 weeks 4 days Composite gestational age from present scan: 34 weeks 2 days Estimated weight and percentile: 2356 g; 60% for gestation age. IMPRESSION: 1. A single living intrauterine gestation is again visualized, demonstrating appropriate interval growth. 2. The estimated weight is 2356 g, 60% for gestation age.. We strive to produce accurate, complete, and clear reports of imaging services. To assist us in improving patient care, this report was composed using standard report templates and voice recognition software. Therefore, it may contain abnormal punctuation, insertions and/or omissions. Occasional wrong-word or sound-alike substitutions may occur. Though we review the report and make efforts to correct it, we do recommend that the report be read carefully in proper context to recognize any text inaccuracies. Dictated by: Kay Martinez M.D. on 11/11/2022 at 21:16 Approved by: Kay Martinez M.D. on 11/11/2022 at 21:19
[2022-11-11 16:42] LABS: Appearance Urine UA CLEAR; Bilirubin Urine UA NEGATIVE (NEGATIVE); Color Urine UA YELLOW; Glucose Urine UA NEGATIVE (Negative); Ketones Urine UA NEGATIVE (NEGATIVE); Leukocyte Esterase Urine UA TRACE (NEGATIVE); Nitrite Urine UA NEGATIVE (Negative); Occult Blood Urine UA NEGATIVE (Negative); Protein Urine UA NEGATIVE (Negative); Urobilinogen Urine UA 0.2 E.U./dL (0.2)
[2022-11-11 16:45] LABS: pH Urine UA 7.5 (4.5-8.0)
[2022-11-11 16:49] LABS: Bacteria Urine Occasional (0-1); Culture Indicated Urine Cult Not Indicated; RBC Urine None Seen (0-5/HPF); Squamous Epithelial Cell Urine 0-1 /HPF (0-5/HPF); WBC Urine None Seen (0-5/HPF)
[2022-11-11] MEDS: NIFEdipine 10 MG CAPSULE PO ×4 (16:50→17:51)
[2022-11-11] MEDS: LACTATED RINGERS 1,000 ML 1000 ML IV (17:04)
[2022-11-11 18:13] LABS: Fetal Fibronectin Negative
--- NOTE | 2022-11-11 18:39 | P.TNLD_ITS ---
Visit Information Visit Information Date of evaluation: 11/11/22 Primary OB Provider: Dirk Sims On-call OB Provider: Kellee Carter Comments/Additional reasons for admission: 22YO @ 33wks here for evaluation of contractions. Has been feeling regular contractions today since 0400 despite her daily nifedipine XR 30mg dose. +FM. No vaginal bleeding or leaking of fluid. Routine care w/ . Vital Signs Vital Signs: BP 99/59, HR 87, RR 16, T 98.6 PFSH Medical History Abdominal pain history Anemia Anxiety and depression (~2017) History of pyelonephritis Irregular menstrual cycle (~2018) Menorrhagia Scoliosis Sprain of costal cartilage Surgical History No pertinent past surgical history Status post D&C Family History Grandmother Diabetes mellitus Kidney failure Family/Other Diabetes mellitus Grandfather Osteoarthritis Arthritis Family/Other Rheumatoid arthritis Grandfather Diabetes mellitus Abdominal tumor Father Arthritis Social History marital status: unmarried,living together number of children: 0 household members: significant other and family (grandparents) lives independently: Yes housing: house pets and animals: Yes education level: high school (did not graduate) current occupational exposures/hazards: No special queenie needs: No travel history: over 6 months ago seatbelt use: always water heater temp set < 120 deg: Yes working smoke detector in home: Yes fire extinguisher in home: Yes carbon monox detector in home: No firearms in home: No do you feel safe at home: Yes Smoking Status: Former smoker second hand exposure: Yes (grandfather and s/o smoke) alcohol intake: never substance use type: does not use during the past year weight has: remained stable well-balanced diet: rarely or never daily servings fruits/ve-1 caffeine: No Type(s) of exercise: none Exam Vital Signs (past 8 hours): see above Objective Imaging OB US >14wks Limited: Radiologist's impression: Ultrasound Report Signed Patient: Emilee Bailey MR#: [id number] : 2000 Acct:[id number] Age/Sex: 22 / F Date of Service: 11/11/22 Loc: LABOR BC06-01 Accession Number: [id number] ?? Procedure: US OB limited Ordering Provider: Dirk Sims MD PROCEDURE:? US OB LIMITED ? INDICATIONS:? CONTRACTION. CERVICAL LENGTH AND GROWTH ? OUTSIDE/PRIOR DATING DATA:? Last menstrual period (LMP):? Not available.? LMP-based estimated date of delivery (ALISSA):? Not available.? First dating scan (date and location):? 06/18/2022.? Estimated date of delivery (ALISSA) from first dating scan:? 12/26/2022. The calculations are made using the or acute ALISSA of 12/26/2022.? ? TECHNIQUE:? Real-time scanning was performed of the fetus, with image documentation and biometric measurements.? Biophysical profile was also obtained.? ? COMPARISON:? [facility] OB >= 14 WEEKS FETUS, 08/19/2022, 12:40.? [facility] OB <= 14 WEEKS FETUS, 06/18/2022, 8:56.? [facility] OB LIMITED, 09/09/2022, 3:05. ? FINDINGS:? ? General:? A single living intrauterine gestation is present.? Presentation:? Breech.? Placenta:? Placental position is anterior , without previa.? ? Amniotic fluid index:? 16.5 cm, normal range is 5-24 cm.? Single deepest vertical pocket is 4.7 cm. heart rate:? 111 beats per minute.? Maternal cervical canal:? 3.7 cm long.? Normal lower limit is 2.5 cm.? ? biometrics:? Biparietal diameter:? 34 weeks 2 days Head circumference:? 36 weeks 1 Abdominal circumference:? 34 weeks 4 days Femur length:? 32 weeks 2 days Clinically estimated gestational age:? 33 weeks 4 days Composite gestational age from present scan:? 34 weeks 2 days Estimated weight and percentile:? 2356 g; 60% for gestation age. ? ?IMPRESSION:? ? 1. A single living intrauterine gestation is again visualized, demonstrating appropriate interval growth. ? 2. The estimated weight is 2356 g, 60% for gestation age.. ? ?We strive to produce accurate, complete, and clear reports of imaging services. To assist us in improving patient care, this report was composed using standard report templates and voice recognition software. Therefore, it may contain abnormal punctuation, insertions and/or omissions. Occasional wrong-word or sound-alike substitutions may occur. Though we review the report and make efforts to correct it, we do recommend that the report be read carefully in proper context to recognize any text inaccuracies. ? ? ? Dictated by: Kay Martinez M.D. on 11/11/2022 at 21:16 ? ? Approved by: Kay Martinez M.D. on 11/11/2022 at 21:19 ? Labs Labs: Laboratory Results - last 24 hr 11/11/22 11/11/22 16:00 16:39 Urine Color Yellow Urine Appearance Clear Urine pH 7.5 Ur Specific [place] 1.010 Urine Protein Negative Urine Glucose (UA) Negative Urine Ketones Negative Urine Occult Blood Negative Urine Nitrate Negative Urine Bilirubin Negative Urine Urobilinogen 0.2 Ur Leukocyte Esterase Trace H Urine RBC None seen Urine WBC None seen Ur Squamous Epith Cells 0-1 /hpf Urine Bacteria Occasional (0-1) Ur Culture Indicated? Cult not indicated Fibronectin Negative Evaluation Evaluation Baseline heart rate: 120 Variability: Moderate (11-25) monitor accelerations: Present Monitor Decelerations: Absent Comments: Contractions changed from uterine irritability Q1 minute rated at 6/10 pain to Q 4 minutes, then rare and mild during triage. Interventions included 1L LR IVFB and nifedipine protocol x 4 doses. Diagnosis, Plan/Disposition Final Diagnosis (1) False labor before 37 completed weeks of gestation: Status: Acute Problem details: Reassurance given for low concern for labor given stable cervical length, negative fFN and decrease in uterine contractions with interventions. Plan/Disposition Plan: Discharge to home with routine labor precautions. Continue daily nifedipine XR 30mg. Follwo-up with as previously scheduled. OB Disposition: home
== END 2022-11-11 18:40 | disposition home or self-care (01) ==
PROVIDERS: Admitting Provider Obstetrics & Gynecology; PCP Family Medicine; Referring Provider Obstetrics & Gynecology; Visit Provider Obstetrics & Gynecology
DX: O47.03 False labor before 37 completed weeks of gestation, third trimester (principal); Z3A.33 33 weeks gestation of pregnancy
CPT/HCPCS: 59025; 59050; 76815; 81001; 82731; 96360; G0378; G0379

== ENCOUNTER → 2022-12-04 10:37 | Outpatient (CLI) | payer MEDICAID, OTHER, SELFPAY ==
[2022-12-05 08:26] LABS: Strep Grp B PCR NEG for Grp B Strep
== END ==
PROVIDERS: PCP Family Medicine; Visit Provider Obstetrics & Gynecology
DX: Z34.81 Encounter for supervision of other normal pregnancy, first trimester (principal); Z3A.36 36 weeks gestation of pregnancy
CPT/HCPCS: 87653

== ENCOUNTER 2022-12-23 11:51 | Inpatient (IN) | payer MEDICAID, OTHER, SELFPAY ==
[2022-12-23] MEDS: fentaNYL 100 MCG/2 ML INJ 50 MCG IV (15:57)
[2022-12-23] MEDS: ONDANSETRON 4 MG/2 ML INJ IV (15:57)
--- NOTE | 2022-12-23 16:20 | P.HPOB_ITS ---
OB HPI Date/Time Date of admission: 12/23/22 History of Present Condition Chief complaint: NST ALISSA Calculator Estimated Delivery Date Method Current WG Current Estimate 12/26/22 Ultrasound #1 39w 4d Other Estimates 12/18/22 LMP (Uncertain) 40w 5d Estimated Gestational Age (weeks): 39w4d : 2 Para: 0 Narrative: 22yo at 39w4d here with regular contractions. Pt reports having contractions starting earlier today, increasing in intensity and frequency. No LOF or vaginal bleeding. She is feeling her baby move regularly. Pts was complicated by contractions on PO Nifedipine. care: good care, initiated at week # (13) and pounds weight gain (30) Dating criteria OB: based on 1st trimester US only Ultrasounds: normal 1st trimester US and normal mid trimester US Obstetrical complications: none Medical complications OB: none Preadmission Labs Last OB Lab Results: Blood Type O Positive 07/23/22 11:52 Antibody Screen Negative 07/23/22 11:52 Hematocrit 37.8 % (36-46) 12/23/22 15:45 Hemoglobin 13.4 g/dL (12.0-16.0) 12/23/22 15:45 Hepatitis B Surface Antigen Negative s/c (NEGATIVE) 07/23/22 11 :52 Hepatitis C Antibody Negative s/c (NEGATIVE) 07/23/22 11:52 Rubella Antibody 23.9 IU/mL (>15) 07/23/22 11:52 Varicella-Zoster IgG Antibody 820 index (Immune >165) 07/23/22 11:52 Glucose 1 Hour 77 mg/dL (76-139) 10/07/22 11:55 Group B Streptococcus (PCR) Neg for grp b strep 12/04/22 10:37 -: Chlamydia screen: negative, Gonorrhea screen: negative and Urine: negative Genetic Screens: Quad screen: Normal External Labs -: Urine: negative Prior (ies) Past Pregnancies Del. Date GA/Weeks Labor Lgth Wt Sex Route Outcome Anesthesia Place Delv Breastfeed Preg Comp Name 11/18/18 10 elective Delivery Date: 11/18/18 Last Updated by: Andree Casanova RN D&C; minor hemorrhage Evaluation Evaluation Baseline heart rate: 120 Variability: Moderate (11-25) monitor accelerations: Present Monitor Decelerations: Absent Contraction Frequency (minutes): 4 Uterine Contraction Intensity: Strong/Firm Status: Category l Dilation (cm): 5 Effacement (%): 90 station: -2 Position of cervix: anterior Consistency: soft PFSH Medical History Abdominal pain history Anemia Anxiety and depression (~2017) History of pyelonephritis Irregular menstrual cycle (~2017) Menorrhagia Scoliosis Sprain of costal cartilage Surgical History No pertinent past surgical history Status post D&C Family History Grandmother Diabetes mellitus Kidney failure Family/Other Diabetes mellitus Grandfather Osteoarthritis Arthritis Family/Other Rheumatoid arthritis Grandfather Diabetes mellitus Abdominal tumor Father Arthritis Social History marital status: unmarried,living together number of children: 0 household members: significant other and family (grandparents) lives independently: Yes housing: house pets and animals: Yes education level: high school (did not graduate) current occupational exposures/hazards: No special queenie needs: No travel history: over 6 months ago seatbelt use: always water heater temp set < 120 deg: Yes working smoke detector in home: Yes fire extinguisher in home: Yes carbon monox detector in home: No firearms in home: No do you feel safe at home: Yes Smoking Status: Never smoker second hand exposure: Yes (grandfather and s/o smoke) alcohol intake: never substance use type: does not use during the past year weight has: remained stable well-balanced diet: rarely or never daily servings fruits/ve-1 caffeine: No Type(s) of exercise: none Meds Home Medications and Allergies Home Medications Medication Instructions Recorded Confirmed Type prenat.vits,jessica,[id number] 1 tab PO DAILY 06/02/22 12/23/22 History Allergies Allergy/AdvReac Type Severity Reaction Status Date / Time Sulfa (Sulfonamide Allergy Severe Hives Verified 12/18/22 11:46 Antibiotics) chicken derived Allergy Intermediate Difficulty Verified 12/18/22 11:46 Breathing turkey Allergy Intermediate Difficulty Verified 12/18/22 11:46 Breathing OB Exam Narrative Exam Narrative: Gen: NAD, sitting comfortably in bed, appears well CV: RRR, no murmurs Resp: clear to auscultation bilaterally Abd: soft, nontender, gravid Ext: no edema Objective Labs 12/23/22 15:45 Assessment and Plan Assessment and Plan Assessment and Plan narrative: 22yo at 39w4d her in active labor. GBS negative, Rh positive. - Expectant management, anticipate - Desires natural methods for pain control - FHT reassuring - GBS negative, no prophylaxis indicated - Plan on AROM if without regular progress
[2022-12-23 16:45] VITALS: BP 116/58
[2022-12-23 16:56] LABS: Add Manual Diff / Slide Review NO; Basophils Absolute Auto 0 /uL (0-100); Basophils Percent Auto 0.3 % (0-2); Eosinophils Absolute Auto 200 /uL (0-450); Eosinophils Percent Auto 1.7 % (2-4); Hematocrit 37.8 % (36-46); Hemoglobin 13.4 g/dL (12.0-16.0); Lymphocytes Absolute Auto 1600 /uL (1100-4500); Lymphocytes Percent Auto 14.6 % (25-40); Mean Corpuscular HGB Conc 35.4 % (30-36); Mean Corpuscular Volume 87.6 fL (80-100); Monocytes Absolute Auto 500 /uL (0-900); Monocytes Percent Auto 4.4 % (3-14); Neutrophils Absolute Auto 8900 /uL (1500-7000); Platelet Count 243 X10^3/uL (150-400); Red Blood Cell Count 4.31 X10^6/uL (4.0-5.2); Red Cell Distribution Width 13.7 % (11.6-14.8); White Blood Cell Count 11.3 X10^3/uL (4.5-11.0)
--- NOTE | 2022-12-23 18:34 | PM.OBPNLAB ---
Date/Time Date Patient Seen: 12/23/22 Pain Control Pain control: tolerating well Pelvic Exam Dilation (cm): 9.5 Effacement (%): 100 station: +1 Contractions Contraction frequency (min): 3 Contraction intensity: Strong/Firm Status status: Category l Heart Rate Baseline: 120 Monitor Accelerations: Present Monitor Decelerations: Absent Monitor Variability: Moderate Assessment and Plan Comments: 22yo at 39w4d her in active labor.? GBS negative, Rh positive. AROM performed after informed consent with clear fluid present. - Expectant management, anticipate - FHT reassuring
[2022-12-23] MEDS: OXYTOCIN PREMIX 30 UNIT/500 ML PLAST..BAG 200 UNIT IV (19:38)
[2022-12-23] MEDS: LIDOCAINE 1% 20 ML INJ (19:40)
[2022-12-23] MEDS: IBUPROFEN 600 MG TABLET PO (20:06)
--- NOTE | 2022-12-23 20:06 | PM.OBPRVD ---
Labor & Delivery Delivery date: 12/23/22 Intrapartal Events: None Cervical ripening method: none Induction method: none Delivery augmentation: rupture of membranes Delivery monitor: external FHT and external uterine Route of delivery: Episiotomy description: None L&D Laceration Description: Labial Quantitative Blood Loss: 300 Anesthesia Type: None Complications: None Narrative: PROCEDURE: at 39w4d presented in active labor and was admitted to Labor and Delivery. The patient progressed through the 1st stage over 11.5 hours. AROM occured at 18:22 with clear fluid. Pain was controlled with natural methods. The patient progressed through the 2nd stage over 1 hour and delivered a viable female infant with APGARs 9/9 at 19:25 via without complications. Meconium was present at the time of delivery. The cord was cut and clamped after it stopped pulsating. The placenta delivered with gentle cord traction, and appeared complete. The perineum and vagina were inspected with right labial laceration repaired with 2-O Chromic. Needle and sponge counts were correct.? The vagina was inspected and no items were left in situ. Emilee was doing well with Mike, her and her partner, Zhao, at bedside. PREPROCEDURE DIAGNOSIS: Intrauterine at 39w4d GBS negative RH positive POSTPROCEDURE DIAGNOSIS: Intrauterine at 39w4d, delivered Same as preprocedure Baby 1: Infant gender: Male Presentation: vertex Position: Right Occiput Anterior Placenta delivery description: Spontaneous Cord Vessel Description: 3 Vessels score (1 min): 9 score (5 min): 9 weight: 8 lb 1.808 oz Plan for aftercare: Routine care
[2022-12-23] MEDS: LACTATED RINGERS 1,000 ML 100 ML IV (20:53)
[2022-12-23] MEDS: LANOLIN OINT 7 GM 1 APPLIC TOP (22:05)
[2022-12-23] MEDS: ACETAMINOPHEN 325 MG TABLET 650 MG PO (22:06)
[2022-12-23] MEDS: OXYCODONE IR 5 MG TABLET PO (22:06)
[2022-12-23] MEDS: DERMOPLAST SPRAY 20% 60 ML 1 SPRAY TOP (22:07)
[2022-12-23] MEDS: TRANEXAMIC ACID 1,000 MG in SODIUM CHLORIDE 0.9% 100 ML 200 MG IV (22:27)
[2022-12-24] MEDS: IBUPROFEN 600 MG TABLET PO ×4 (03:35→21:42)
[2022-12-24] MEDS: OXYCODONE IR 5 MG TABLET PO ×2 (03:35→16:56)
[2022-12-24] MEDS: ACETAMINOPHEN 325 MG TABLET 650 MG PO ×4 (03:46→21:40)
[2022-12-24 06:46] LABS: Add Manual Diff / Slide Review NO; Basophils Absolute Auto 0 /uL (0-100); Basophils Percent Auto 0.3 % (0-2); Eosinophils Absolute Auto 0 /uL (0-450); Eosinophils Percent Auto 0.1 % (2-4); Hemoglobin 9.7 g/dL (12.0-16.0); Lymphocytes Absolute Auto 2200 /uL (1100-4500); Lymphocytes Percent Auto 14.6 % (25-40); Mean Corpuscular Hemoglobin 31.3 PG (26-34); Mean Corpuscular Volume 86.9 fL (80-100); Monocytes Absolute Auto 800 /uL (0-900); Monocytes Percent Auto 5.4 % (3-14); Neutrophils Absolute Auto 11800 /uL (1500-7000); Neutrophils Percent Auto 79.6 % (50-75); Platelet Count 195 X10^3/uL (150-400); Red Blood Cell Count 3.11 X10^6/uL (4.0-5.2); Red Cell Distribution Width 13.3 % (11.6-14.8); White Blood Cell Count 14.8 X10^3/uL (4.5-11.0)
[2022-12-24] MEDS: PRENATAL VIT,CALC/IRON/FOLIC 1 TABLET 1 TAB PO (09:11)
[2022-12-24] MEDS: DOCUSATE 100 MG CAPSULE PO (09:11)
--- NOTE | 2022-12-24 16:48 | P.PNOB_ITS ---
Subjective - OB Subjective Patient comments: no complaints and pain well controlled [place] baby status: doing well and nursing well feeding status: exclusively breast feeding Narrative: Patient reports that she is doing well. Her lochia is decreasing appropriately. She has voided successfully. Exam Narrative Exam Narrative: Gen: NAD, sitting comfortably in bed, appears well CV: RRR, no murmurs Resp: clear to auscultation bilaterally Abd: soft, appropriately tender, fundus firm and below the umbilicus, nondistended Ext: no edema Objective Labs 12/24/22 06:34 Labs: Laboratory Results - last 24 hr 12/23/22 12/23/22 12/24/22 15:45 15:45 06:34 WBC 11.3 H 14.8 H RBC 4.31 3.11 L Hgb 13.4 9.7 L Hct 37.8 27.0 L MCV 87.6 86.9 MCH 31.0 31.3 MCHC 35.4 36.0 RDW 13.7 13.3 Plt Count 243 195 Neut % (Auto) 79.0 H 79.6 H Lymph % (Auto) 14.6 L 14.6 L [place] % (Auto) 4.4 5.4 Eos % (Auto) 1.7 L 0.1 L Baso % (Auto) 0.3 0.3 Neut # (Auto) 8900 H 25166 H Lymph # (Auto) 1600 2200 [place] # (Auto) 500 800 Eos # (Auto) 200 0 Baso # (Auto) 0 0 Blood Type O Positive Antibody Screen Negative Assessment & Plan Plan Comments: Pt is a 22yo PPD#1 s/p without complications. Pt doing well. - Normal care - support Time Spent With Patient Time: Total time spent is greater than 50% in coordination of care (as documented) at patient's floor/unit and/or counseling patient: Time with patient: less than 15 minutes
[2022-12-25] MEDS: ACETAMINOPHEN 325 MG TABLET 650 MG PO ×2 (03:13→09:02)
[2022-12-25] MEDS: IBUPROFEN 600 MG TABLET PO ×2 (03:14→09:02)
[2022-12-25] MEDS: PRENATAL VIT,CALC/IRON/FOLIC 1 TABLET 1 TAB PO (09:02)
[2022-12-25] MEDS: DOCUSATE 100 MG CAPSULE PO (09:02)
--- NOTE | 2022-12-25 09:19 | P.DS_ITS ---
Discharge Providers Provider Date of admission: 12/23/22 11:51 Discharge Date: 12/25/22 Primary care physician: Iris Avila MD Consults: 12/23/22 15:30 Consult to Anesthesiology Urgent Comment: Consulting Provider: Anesthesiologist Reason for consultation: Epidural 12/24/22 20:05 Consult to Master Mechanic Routine Comment: Discharge provider: Kajal Martinez MD Summary Hospital Course Date Patient Seen: 12/25/22 Diagnoses: Intrauterine at 39w4d GBS negative RH positive Spontaneous vaginal delivery Hospital Course: The pt presented in active labor. AROM was performed with clear fluid present. She progressed to complete and had an of a viable baby boy, with meconium present at delivery. A very small 2nd degree laceration was repaired. , there were no complications. At the time of discharge she was voiding, ambulating, and passing flatus without difficulty. Her lochia was decreasing appropriately. Her pain was well controlled. She will f/u in 6 weeks for check. She was with good latch. Peripartum Data Delivery Method: Natural Vaginal Laceration Description: Perineal - 2nd Degree Episiotomy description: None Procedures: Spontaneous vaginal delivery complications: none 1: Gender: Male Disposition of : home Discharge Diagnosis (1) Spontaneous vaginal delivery: Status: Acute Status at Discharge Cognitive/behavioral status at discharge: oriented Functional status at discharge: independent ambulation Overall status at discharge: patient is progressing back to baseline Time Spent with Patient Time attestation: Total time spent providing and/or coordinating discharge services: Objective Labs 12/24/22 06:34 Exam Narrative Exam Narrative: Gen: NAD, sitting comfortably in bed, appears well CV: RRR, no murmurs Resp: clear to auscultation bilaterally Abd: soft, appropriately tender, fundus firm and below the umbilicus, nondistended Ext: no edema Discharge Plan Discharge Plan Patient Disposition: Home Discharge orders & Medications Prescriptions: New acetaminophen 325 mg Tablet 650 mg PO Q6HR PRN (Reason: Pain, Mild (1-3)) Qty: 30 0RF docusate sodium 100 mg Capsule 100 mg PO DAILY Qty: 30 0RF ibuprofen 600 mg Tablet 600 mg PO Q6HR PRN (Reason: Pain, Mild (1-3)) Qty: 30 0RF Continued prenat.vits,jessica,[id number] Tablet 1 tab PO DAILY Follow up/Referrals: Iris Avila MD [Primary Care Provider] - Dirk Sims MD [Physician] - (Your six week follow up appointment with Dr. Sims is scheduled for February 03 @1:30pm.) Diet/Activity/Treatments Diet: Diet as Tolerated and Regular Skin/Wound/Dressing Care Report to your healthcare provider any signs of infection, such as:: chills, fever Visit Report/Discharge Packet Instructions: DI for Labor and Delivery, Vaginal Stand Alone Forms: Discharge: Care, Patient Portal/API, Stroke Signs & Symptoms Discharge Data Primary Care Provider: Iris Avila
== END 2022-12-25 11:00 | disposition home or self-care (01) | DRG 807 ==
PROVIDERS: Family Medicine; Admitting Provider Obstetrics & Gynecology; PCP Family Medicine; Referring Provider Obstetrics & Gynecology; Visit Provider Obstetrics & Gynecology
DX: O70.0 First degree perineal laceration during delivery (principal); Z37.0 Single live birth; Z3A.39 39 weeks gestation of pregnancy
CPT/HCPCS: 36415; 59050; 59409; 85025; 86850; 86900; 86901; G0379; J2405; J2590; J3010

== ENCOUNTER 2024-07-03 05:29 | Observation (INO) | payer MEDICAID, OTHER, SELFPAY ==
--- NOTE | 2024-07-03 06:16 | DI.US.S_ITS ---
PROCEDURE: US OB LIMITED INDICATIONS: labor OUTSIDE/PRIOR DATING DATA: Working ALISSA is 10/06/2024 using 1st trimester ultrasound from 05/18/2024 TECHNIQUE: Real-time scanning was performed of the fetus, with image documentation and biometric measurements. COMPARISON: [facility] Ultrasound, US, US OB > 14 WEEKS COMPLETE ANATOMY, 05/18/2024, 8:07. FINDINGS: General: A single living intrauterine gestation is present. Presentation: Vertex. Placenta: Placental position is posterior , without previa. Amniotic fluid index: 16.2 cm, normal range is 5-24 cm. heart rate: 150 beats per minute. Maternal cervical canal: 2.6 cm long. Normal lower limit is 2.5 cm. biometrics: Biparietal diameter: 6.8 cm, 27 weeks and 2 days Head circumference: 25.1 cm, 27 weeks and 2 days Abdominal circumference: 22.4 cm, 26 weeks and 6 days Femur length: 4.9 cm, 26 weeks and 3 days Clinically estimated gestational age: 23 weeks and 3 days Composite gestational age from present scan: 27 weeks Estimated weight and percentile: 980 g, 52% BPP is 6/8. No points given for respiration. IMPRESSION: Living intrauterine gestation in vertex presentation. EFW is within normal limits. BPP is 6/8 (no points for respiration) Normal ROWAN. Cervix measures 2.6 cm on transabdominal view. Dictated by: Avi Alvarado M.D. on 07/03/2024 at 8:14 Approved by: Avi Alvarado M.D. on 07/03/2024 at 8:16
[2024-07-03] MEDS: NIFEdipine 10 MG CAPSULE PO ×2 (07:10→07:55)
[2024-07-03] MEDS: ONDANSETRON 8 MG in SODIUM CHLORIDE 0.9% 50 ML 216 MG IV (07:13)
[2024-07-03] MEDS: LACTATED RINGERS 1,000 ML 1000 ML IV (07:18)
[2024-07-03 07:25] LABS: Appearance Urine UA SL CLOUDY; Bilirubin Urine UA 1+ (NEGATIVE); Color Urine UA YELLOW; Glucose Urine UA NEGATIVE (Negative); Ketones Urine UA 3+ (NEGATIVE); Leukocyte Esterase Urine UA 2+ (NEGATIVE); Nitrite Urine UA NEGATIVE (Negative); Occult Blood Urine UA NEGATIVE (Negative); Protein Urine UA 1+ (Negative); Specific Gravity Urine UA 1.015 (1.000-1.035); pH Urine UA 7.5 (4.5-8.0)
[2024-07-03 07:26] LABS: Add Manual Diff / Slide Review NO; Basophils Absolute Auto 0 /uL (0-100); Basophils Percent Auto 0.3 % (0-2); Eosinophils Absolute Auto 100 /uL (0-450); Eosinophils Percent Auto 0.9 % (2-4); Hematocrit 36.8 % (36-46); Hemoglobin 12.8 g/dL (12.0-16.0); Lymphocytes Absolute Auto 700 /uL (1100-4500); Lymphocytes Percent Auto 5.2 % (25-40); Mean Corpuscular HGB Conc 34.8 % (30-36); Mean Corpuscular Hemoglobin 30.5 PG (26-34); Mean Corpuscular Volume 87.6 fL (80-100); Monocytes Absolute Auto 500 /uL (0-900); Monocytes Percent Auto 3.8 % (3-14); Neutrophils Absolute Auto 12900 /uL (1500-7000); Neutrophils Percent Auto 89.8 % (50-75); Platelet Count 332 X10^3/uL (150-400); Red Cell Distribution Width 13.8 % (11.6-14.8); White Blood Cell Count 14.4 X10^3/uL (4.5-11.0)
[2024-07-03 07:27] LABS: Ictotest Urine Negative (Negative); Urine Volume 10mL (spun)
[2024-07-03 07:30] LABS: Bacteria Urine None Seen; Culture Indicated Urine Specimen Cultured; Mucus Urine 2+ (Negative); RBC Urine None Seen (0-5/HPF); Squamous Epithelial Cell Urine 5-10 /HPF (0-5/HPF); WBC Urine 5-10/HPF (0-5/HPF)
[2024-07-03 07:35] LABS: Alanine Aminotransferase 17 IU/L (<35); Albumin 3.9 g/dL (3.5-5.0); Albumin Globulin Ratio 1.2 (1.0-2.8); Alkaline Phosphatase 91 U/L (38-126); Aspartate Aminotransferase 23 IU/L (14-36); BUN Creatinine Ratio 14.9 (6-22); Bilirubin Total 1.1 mg/dL (0.2-1.3); Blood Urea Nitrogen 7 mg/dL (7-17); Calcium 8.6 mg/dL (8.4-10.2); Carbon Dioxide 22 mmol/L (22-32); Chloride 107 mmol/L (98-107); Estimated Glomerular Filt Rate > 60 mL/min (>60); Globulin 3.2 g/dL (1.7-4.1); Glucose 99 mg/dL (70-100); HEMOLYSIS < 15 (0-50); Potassium 3.7 mmol/L (3.4-5.1); Sodium 136 mmol/L (137-145); Total Protein 7.1 g/dL (6.3-8.2)
[2024-07-03 08:53] LABS: Fetal Fibronectin Negative
--- NOTE | 2024-07-03 09:39 | PM.OBTRLD ---
Visit Information Visit Information Date of evaluation: 07/03/24 Primary OB Provider: Macey Kirk On-call OB Provider: Dirk Sims Reason for Evaluation: Yes rule out labor Comments/Additional reasons for admission: Emilee is a 23-year-old 3 para 1, ALISSA 10/06/2024 who presents for evaluation with nausea and vomiting contractions since last night around 9:00 p.m.. Her symptoms began with diarrhea followed by cramping which has persisted despite she has not another episode since late last night. Her baby is active but she is having contractions about every 3-4 minutes which at times have been rather intense. She denies bleeding, leakage of fluid per vagina, or change in discharge however. course is largely been uneventful but the patient did have some premature contractions with previous . Vital Signs Vital Signs: 96/48, 110 BPM, 14, 37.3C (99.2F) [facility] Medical History (Updated 07/03/24 @ 09:51 by Dirk Sims MD) Spontaneous vaginal delivery Scoliosis Anemia History of pyelonephritis Anxiety and depression (~2018) Menorrhagia history Sprain of costal cartilage Abdominal pain Surgical History Status post D&C No pertinent past surgical history Family History Grandmother Diabetes mellitus Kidney failure Family/Other Diabetes mellitus Grandfather Osteoarthritis Arthritis Family/Other Rheumatoid arthritis Grandfather Diabetes mellitus Abdominal tumor Father Arthritis Social History marital status: unmarried,living together number of children: 0 household members: significant other and family (grandparents) lives independently: Yes housing: house pets and animals: Yes education level: high school (did not graduate) current occupational exposures/hazards: No special queenie needs: No travel history: over 6 months ago seatbelt use: always water heater temp set < 120 deg: Yes working smoke detector in home: Yes fire extinguisher in home: Yes carbon monox detector in home: No firearms in home: No do you feel safe at home: Yes Smoking Status: Never smoker second hand exposure: Yes (grandfather and s/o smoke) alcohol intake: never substance use type: does not use during the past year weight has: remained stable well-balanced diet: rarely or never daily servings fruits/ve-1 caffeine: No Type(s) of exercise: none Review of Systems Review of Systems Narrative: Problem-specific ROS positives included in HPI Exam Vital Signs (past 8 hours): See above Uterus Location (Fundal Height): 27 Estimated Weight (lbs): 2 Objective Imaging Limited OB US w/ BPP: Radiologist's impression: PROCEDURE: US OB LIMITED INDICATIONS: labor OUTSIDE/PRIOR DATING DATA: Working ALISSA is 10/06/2024 using 1st trimester ultrasound from 05/18/2024 TECHNIQUE: Real-time scanning was performed of the fetus, with image documentation and biometric measurements. COMPARISON: [facility] Ultrasound, US, US OB > 14 WEEKS COMPLETE ANATOMY, 05/18/2024, 8:07. FINDINGS: General: A single living intrauterine gestation is present. Presentation: Vertex. Placenta: Placental position is posterior , without previa. Amniotic fluid index: 16.2 cm, normal range is 5-24 cm. heart rate: 150 beats per minute. Maternal cervical canal: 2.6 cm long. Normal lower limit is 2.5 cm. biometrics: Biparietal diameter: 6.8 cm, 27 weeks and 2 days Head circumference: 25.1 cm, 27 weeks and 2 days Abdominal circumference: 22.4 cm, 26 weeks and 6 days Femur length: 4.9 cm, 26 weeks and 3 days Clinically estimated gestational age: 23 weeks and 3 days Composite gestational age from present scan: 27 weeks Estimated weight and percentile: 980 g, 52% BPP is 6/8. No points given for respiration. IMPRESSION: Living intrauterine gestation in vertex presentation. EFW is within normal limits. BPP is 6/8 (no points for respiration) Normal ROWAN. Cervix measures 2.6 cm on transabdominal view. Labs 07/03/24 07:05 07/03/24 07:05 Labs: Laboratory Results - last 24 hr 07/03/24 07/03/24 07:05 08:15 WBC 14.4 H RBC 4.20 Hgb 12.8 Hct 36.8 MCV 87.6 MCH 30.5 MCHC 34.8 RDW 13.8 Plt Count 332 Neut % (Auto) 89.8 H Lymph % (Auto) 5.2 L [place] % (Auto) 3.8 Eos % (Auto) 0.9 L Baso % (Auto) 0.3 Neut # (Auto) 69753 H Lymph # (Auto) 700 L [place] # (Auto) 500 Eos # (Auto) 100 Baso # (Auto) 0 Sodium 136 L Potassium 3.7 Chloride 107 Carbon Dioxide 22 BUN 7 Creatinine 0.47 L Estimated GFR > 60 BUN/Creatinine Ratio 14.9 Glucose 99 Calcium 8.6 Total Bilirubin 1.1 AST 23 ALT 17 Alkaline Phosphatase 91 Total Protein 7.1 Albumin 3.9 Globulin 3.2 Albumin/Globulin Ratio 1.2 Urine Color Yellow Urine Appearance Sl cloudy Urine pH 7.5 Ur Specific [place] 1.015 Urine Protein 1+ H Urine Glucose (UA) Negative Urine Ketones 3+ H Urine Occult Blood Negative Urine Nitrate Negative Urine Bilirubin 1+ H Ur Bilirubin Confirm Negative Urine Urobilinogen 1.0 Ur Leukocyte Esterase 2+ H Urine RBC None seen Urine WBC 5-10/hpf H Ur Squamous Epith Cells 5-10 /hpf H Urine Bacteria None seen Urine Mucus 2+ H Ur Culture Indicated? Specimen cultured Vol Urine Centrifuged 10ml (spun) Fibronectin Negative Evaluation Evaluation Baseline heart rate: 140 Variability: Average (6-10) monitor accelerations: Present Monitor Decelerations: Absent Contraction Frequency (minutes): 4 (On presentation to ) Uterine Contraction Intensity: Mild Category of Tracing: Reactive Status: Category l Comments: Cervical length 2.6 cm by ultrasound, fibronectin negative Diagnosis, Plan/Disposition Final Diagnosis (1) Nausea and vomiting during : Status: Acute (2) Premature uterine contractions: Status: Acute (3) Dehydration during : Status: Acute (4) Urine leukocytes: Status: Acute (5) Urine ketones: Status: Acute Plan/Disposition Plan: CMP, CBC negative/normal. UA 2_ WBC, 3+ ketones, FFP negative Intravenous fluids, 2 L Ringer's lactate Intravenous Zofran, 8 mg x 1; outpatient prescription provided Nifedipine 10 mg immediate release, 2 doses 20 mg apart Following IV fluids, oral nifedipine, and intravenous Zofran, both the patient's nausea and vomiting as well as her contractions have resolved. As a precaution will initiate nitrofurantoin 100 mg p.o. b.i.d. due to urine leukocytes and history pyelonephritis Patient be discharged with a copy of today's triage note to follow-up with her valuation consultant tomorrow as scheduled with further decisions regarding management remaining with her primary care provider OB Disposition: home
== END 2024-07-03 10:12 | disposition home or self-care (01) ==
PROVIDERS: Admitting Provider Obstetrics & Gynecology; PCP Family Medicine; Referring Provider Family Medicine; Visit Provider Obstetrics & Gynecology
DX: O21.2 Late vomiting of pregnancy (principal); O60.02 Preterm labor without delivery, second trimester; O26.892 Other specified pregnancy related conditions, second trimester; E86.0 Dehydration; R19.7 Diarrhea, unspecified; R82.998 Other abnormal findings in urine; Z3A.26 26 weeks gestation of pregnancy
CPT/HCPCS: 36415; 59025; 59050; 76815; 76819; 80053; 81001; 82731; 85025; 87086; 96360; 96361; G0378; G0379; J2405